=== PATIENT | male | born 1995 | race Caucasian/White ===

== ENCOUNTER 2017-10-15 10:20 | Emergency (ER) | payer BC, SELFPAY ==
--- NOTE | 2017-10-15 11:09 | RAD ---
3 VIEWS RIGHT HAND: Date: 10/15/17 COMPARISON: None. HISTORY: Swelling and bruising following a crush injury to the right hand yesterday. FINDINGS: No displaced fracture or evidence of dislocation. There is soft tissue swelling involving the dorsal aspect of the hand at the level of the metacarpals. IMPRESSION: Dorsal soft tissue swelling with no evidence for associated fracture or dislocation. POS: [facility]
== END 2017-10-15 12:17 | disposition home or self-care (01) ==
LOC: ERS 10:20
DX: S60.221A Contusion of right hand, initial encounter (principal); W20.8XXA Other cause of strike by thrown, projected or falling object, initial encounter